=== PATIENT | female | born 1960 ===

== ENCOUNTER 2020-12-10 21:56 | Emergency (ER) | payer SELFPAY ==
[~2020-12-10] VITALS: Ht 167.6 cm; Wt 57.9 kg
[2020-12-10 21:57] VITALS: BP 138/86
== END 2020-12-10 22:58 | disposition left against medical advice (07) ==
LOC: M ED 21:56
DX: Z53.21 Procedure and treatment not carried out due to patient leaving prior to being seen by health care provider (principal)